=== PATIENT | female | born 1995 | race Caucasian/White ===

== ENCOUNTER 2021-09-13 03:24 | Emergency (ER) | payer BC ==
[~2021-09-13] VITALS: Ht 167.6 cm; Wt 47.2 kg
[2021-09-13] MEDS ORDERED: ONDANSETRON 4 MG/2 ML VIAL IV ONE ×2 (04:00→05:30)
[2021-09-13] MEDS ORDERED: FENTANYL CITRATE 100 MCG/2 ML AMPUL IV ONE (04:00)
[2021-09-13] MEDS ORDERED: IV NORMAL SALINE 1000 ML BAG IV ONE (04:00)
[2021-09-13] MEDS ORDERED: ONDANSETRON 4 MG/2 ML VIAL ONE ×2 (04:08→05:27)
[2021-09-13] MEDS ORDERED: FENTANYL CITRATE 100 MCG/2 ML AMPUL ONE (04:08)
[2021-09-13 04:13] LABS: HEMATOCRIT 37.4 % (31.2-41.9); MEAN CORPUSCULAR HEMOGLOBIN 31.9 uug (24.7-32.8); MEAN CORPUSCULAR VOLUME 90.9 fL (75.5-95.3); PLATELET COUNT (AUTO) 259 K/uL (179-408)
[2021-09-13 04:15] LABS: CARBON DIOXIDE 24 mmol/L (21-32); CHLORIDE 105 mmol/L (98-107); CREATININE 0.9 mg/dL (0.6-1.3); GLUCOSE 145 mg/dL (74-106); POTASSIUM 3.2 mmol/L (3.5-5.1); UREA NITROGEN, BLOOD 19 mg/dL (7-18)
--- NOTE | 2021-09-13 04:16 | NUR ---
us tech is called and notified of order
[2021-09-13 04:22] LABS: ALANINE AMINOTRANSFERASE 47 U/L (14-59); ALKALINE PHOSPHATASE 67 U/L (50-136); ASPARTATE AMINOTRANSFERASE 41 U/L (15-37); BILIRUBIN,DIRECT 0.2 mg/dL (0.0-0.2); BILIRUBIN,TOTAL 0.4 mg/dL (0.2-1.0); LIPASE 353 U/L (73-393); TOTAL PROTEIN, SERUM 7.7 g/dL (6.4-8.2)
--- NOTE | 2021-09-13 04:30 | NUR ---
dr was informed of potassium, sodium , and creatine results . received order of kcl 40 meq po and magnesium 2gm iv
[2021-09-13] MEDS ORDERED: MAGNESIUM SULFATE 2 GM in IV DEXTROSE 5% 100 ML IV ONE (04:45)
[2021-09-13] MEDS ORDERED: POTASSIUM CHLORIDE 20 MEQ TAB.PRT.SR PO ONE (04:45)
[2021-09-13] MEDS ORDERED: MAGNESIUM SULFATE/D5W 200 ML ONE (04:54)
[2021-09-13] MEDS ORDERED: POTASSIUM CHLORIDE 10 MEQ TAB.PRT.SR ONE (04:55)
[2021-09-13] MEDS ORDERED: POTASSIUM CHLORIDE 20 MEQ TAB.PRT.SR ONE (04:59)
[2021-09-13] MEDS ORDERED: MORPHINE SULFATE 2 MG/1 ML DISP.SYRIN IV ONE (05:00)
[2021-09-13] MEDS ORDERED: MORPHINE SULFATE 2 MG/1 ML DISP.SYRIN ONE (05:04)
--- NOTE | 2021-09-13 05:10 | NUR ---
US TECH IS AT BEDSIDE FOR GALL BLADDER US
--- NOTE | 2021-09-13 05:20 | NUR ---
[employer] SPOKE TO DR VIEYRA ABOUT FINDINGS
[2021-09-13] MEDS ORDERED: FAMOTIDINE. 20 MG/2 ML VIAL IV ONE ×2 (05:27→05:30)
[2021-09-13] MEDS ORDERED: LIDOCAINE VISCUS 2% 15 ML UDC MM ONE (05:30)
[2021-09-13] MEDS ORDERED: MAG HYDROX/AL HYDROX/SIMETH 30 ML LIQUID UDC PO ONE (05:30)
[2021-09-13] MEDS ORDERED: DICYCLOMINE HCL LIQ 10 MG/5 ML UDC PO ONE (05:30)
[2021-09-13] MEDS ORDERED: LIDOCAINE VISCUS 2% 15 ML UDC ONE (05:34)
[2021-09-13] MEDS ORDERED: MAGNESIUM HYDROXIDE 30 ML LIQUID UDC ONE (05:35)
[2021-09-13] MEDS ORDERED: DICYCLOMINE HCL LIQ 10 MG/5 ML UDC ONE (05:35)
[2021-09-13] MEDS ORDERED: MAG HYDROX/AL HYDROX/SIMETH 30 ML LIQUID UDC ONE (05:37)
--- NOTE | 2021-09-13 05:45 | NUR ---
patient was having uncontrollable crying and anxiety , tried to console and calm down the patient , dr concepcion was informed
--- NOTE | 2021-09-13 06:00 | NUR ---
mother julio was called, with patient 's consent , notified of medication given and text done and was able to obtain information that patient takes xanax 3 mg daily , and ketamine 200 mg 2x /day for her severe anxiety attack , dr concepcion was informed of findings , went to see patient at bedside , and questioned about medications she 's taking to help and control her anxiety attack , doctor explained options for the patient and verbalizes understanding
[2021-09-13] MEDS ORDERED: BACL20TA PO (06:13)
[2021-09-13] MEDS ORDERED: [UNRECOGNIZED DRUG - CODE] PO (06:13)
[2021-09-13] MEDS ORDERED: ALPR1TAB2 PO (06:13)
[2021-09-13] MEDS ORDERED: GABA600T12 PO (06:13)
[2021-09-13] MEDS ORDERED: LORAZEPAM 2 MG/1 ML VIAL IV ONE (06:15)
[2021-09-13] MEDS ORDERED: KETAMINE HCL 500 MG/10 ML INJ IV ONE ×2 (06:15→10:00)
[2021-09-13] MEDS ORDERED: KETAMINE HCL 500 MG/10 ML INJ ONE ×2 (06:32→10:33)
[2021-09-13] MEDS ORDERED: LORAZEPAM 2 MG/1 ML VIAL ONE (06:33)
--- NOTE | 2021-09-13 08:35 | NUR ---
Pt declined breakfast tray. Gave pt juice and cup of Ice. Pt anxiety under control, still c/o epigastric pain.
[2021-09-13 09:12] LABS: *BILIRUBIN,URIN NEGATIVE (NEGATIVE); *BLOOD, URINE 1+ (NEGATIVE); *CLARITY,URINE CLEAR (CLEAR); *COLOR,URINE YELLOW (YELLOW); *KETONES,URINE 2+ (NEGATIVE); *UROBILINOGEN,URINE 0.2 E.U./dl (NORMAL); LEUKOCYTE ESTERASE ,URINE NEGATIVE (NEGATIVE); NITRITE, URINE NEGATIVE (NEGATIVE); UGLUCOSE NEGATIVE (NEGATIVE)
--- NOTE | 2021-09-13 09:17 | NUR ---
Female truck caterer accompanied female patient for Dr Abbasi during abdominal assessment
[2021-09-13 10:04] LABS: BACTERIA,URINE NONE SEEN /HPF (NONE SEEN); WBC,URINE 0-3 /HPF (0-3)
[2021-09-13 10:05] LABS: SQUAMOUS EPITHELIAL CELL,UR FEW /HPF (NONE SEEN)
--- NOTE | 2021-09-13 12:05 | NUR ---
removed IV. intact, site okay
--- NOTE | 2021-09-13 12:07 | NUR ---
Patient discharged to home in stable condition. Written and verbal after care instructions given. Patient verbalizes understanding of instructions. Stressed follow up or return to ER for worsening s/s.
[2021-09-13 12:08] VITALS: BP 113/64
--- NOTE | 2021-09-14 09:53 | NUR ---
IV MAG started on 09/13/21 4:42 am completed 5:42 am
== END 2021-09-13 12:11 | disposition home or self-care (01) ==
LOC: ER 03:31
DX: R10.13 Epigastric pain (principal); G89.4 Chronic pain syndrome; F43.10 Post-traumatic stress disorder, unspecified
CPT/HCPCS: 36415; 76705; 80048; 80076; 81001; 83690; 84702; 85025; 93005; 96365; 96375; 96376; 99284; J2060; J2270; J2405 ×2; J3010; J3475; J3490 ×3; A4663; J7030

== ENCOUNTER 2022-04-29 21:50 | Emergency (ER) | payer BC ==
[~2022-04-29] VITALS: Ht 167.6 cm; Wt 47.2 kg
[~2022-04-29 21:50] MED LIST: ALPR1TAB2 PO; BACL20TA PO; GABA600T12 PO; [UNRECOGNIZED DRUG - CODE] PO
--- NOTE | 2022-04-29 23:00 | NUR ---
Faxed release of record form to Tonya who is one of the nurse at [facility].
--- NOTE | 2022-04-29 23:50 | NUR ---
Dr. Atkinson at bedside. MSE in progress.
[2022-04-30] MEDS ORDERED: HYDROMORPHONE 1 MG/1 ML DISP.SYRIN IV ONE
[2022-04-30] MEDS ORDERED: HYDROMORPHONE 1 MG/1 ML DISP.SYRIN ONE (00:13)
[2022-04-30 00:17] LABS: HEMATOCRIT 34.4 % (31.2-41.9); MEAN CORPUSCULAR HEMOGLOBIN 32.6 uug (24.7-32.8); MEAN CORPUSCULAR VOLUME 90.9 fL (75.5-95.3); PLATELET COUNT (AUTO) 269 K/uL (179-408)
[2022-04-30 00:25] LABS: CARBON DIOXIDE 28 mmol/L (21-32); CHLORIDE 102 mmol/L (98-107); CREATININE 0.7 mg/dL (0.6-1.3); GLUCOSE 90 mg/dL (74-106); POTASSIUM 3.6 mmol/L (3.5-5.1); UREA NITROGEN, BLOOD 17 mg/dL (7-18)
[2022-04-30 00:34] LABS: ALANINE AMINOTRANSFERASE 22 U/L (14-59); ALKALINE PHOSPHATASE 55 U/L (50-136); ASPARTATE AMINOTRANSFERASE 8 U/L (15-37); BILIRUBIN,DIRECT 0.1 mg/dL (0.0-0.2); BILIRUBIN,TOTAL 0.4 mg/dL (0.2-1.0); TOTAL PROTEIN, SERUM 7.6 g/dL (6.4-8.2)
[2022-04-30] MEDS ORDERED: ONDANSETRON 4 MG/2 ML VIAL IV ONE (00:45)
[2022-04-30] MEDS ORDERED: ONDANSETRON 4 MG/2 ML VIAL ONE (00:46)
--- NOTE | 2022-04-30 01:55 | NUR ---
Patient discharged to home in stable condition. A/O x4. NAD noted. Ambulatory with a steady gait. All belongings with patient. Written and verbal after care instructions given. Patient verbalizes understanding of instructions. Stressed follow up or return to ER for worsening s/s.
[2022-04-30 02:03] VITALS: BP 110/71
== END 2022-04-30 01:55 | disposition home or self-care (01) ==
LOC: ER 22:10
DX: R10.11 Right upper quadrant pain (principal); R07.9 Chest pain, unspecified; G89.4 Chronic pain syndrome; F41.9 Anxiety disorder, unspecified
CPT/HCPCS: 36415; 93005; 99284; 96374; 96375; 80076; 80048; 85025; 84484; J2405; J1170

== ENCOUNTER 2022-05-01 19:00 | Emergency (ER) | payer SELFPAY ==
--- NOTE | 2022-05-01 19:55 | NUR ---
Patient was called to be triaged but was not present in the waiting room or outside of ER.
--- NOTE | 2022-05-01 20:20 | NUR ---
Patient was called to be triaged but was not present in the waiting room or outside of ER.
== END 2022-05-01 20:20 | disposition left against medical advice (07) ==
LOC: ER 19:05
DX: Z53.21 Procedure and treatment not carried out due to patient leaving prior to being seen by health care provider (principal)